=== PATIENT | female | born 1995 | race Caucasian/White ===

== ENCOUNTER 2025-02-09 23:23 | Emergency (ER) | payer SELFPAY ==
[~2025-02-09] VITALS: Ht 170.2 cm; Wt 127.0 kg
[2025-02-09 23:24] VITALS: TEMP 98.9
[2025-02-10 00:03] LABS: BASOPHILS % 0.9 % (0.0-1.0); EOSINOPHILS % 2.1 % (0.0-6.0); LYMPHOCYTES % 25.3 % (18.0-39.1); MONOCYTES % 6.1 % (4.4-11.3); NEUTROPHILS % 65.3 % (38.7-80.0); RED CELL DISTRIBUTION WIDTH 14.5 % (11.7-14.4)
[2025-02-10 00:30] VITALS: PULSE 77; RESP 17
[2025-02-10 01:01] LABS: EST GLOMERULAR FILTRATION RATE 121.0 ML/MIN (>=60)
[2025-02-10 01:28] VITALS: BP 128/80; PULSE 77; RESP 20; O2SAT 98
== END 2025-02-10 01:15 | disposition home or self-care (01) ==
LOC: ER 23:28
DX: R42 Dizziness and giddiness (principal); R07.89 Other chest pain; F41.9 Anxiety disorder, unspecified; E66.01 Morbid (severe) obesity due to excess calories; R94.31 Abnormal electrocardiogram [ECG] [EKG]
CPT/HCPCS: 36415; 71045; 80053; 84484; 85025; 93005; 99284